=== PATIENT | female | born 1980 | race Asian ===

== ENCOUNTER 2017-06-20 11:39 | Day surgery (SDC) | payer MEDICAID, OTHER ==
[2017-06-19 15:16] VITALS: BMI 31.8
[~2017-06-20] VITALS: Ht 162.6 cm; Wt 81.8 kg
[2017-06-20] VITALS (13 sets, daily range): BP systolic 129–156; BP diastolic 79–108; PULSE 74–88; RESP 10–22; Ht 162.6 cm; Wt 81.8 kg
[~2017-06-20 11:39] MED LIST: AMLO-147 PO; FOLI-49 PO; LABE100T3 PO; MEDR10TA2 PO; NORE1TAB48 PO
[2017-06-20] MEDS ORDERED: CEFAZOLIN 2 GM/50 ML (PMX) 50 ML IVPB ONE (13:00)
[2017-06-20] MEDS ORDERED: metroNIDAZOLE 500 MG/NS (PMX) 100 ML IVPB ONE (13:00)
[2017-06-20] MEDS ORDERED: LACTATED RINGER'S 1,000 ML IV* ONE (13:00)
--- NOTE | 2017-06-20 13:01 | HPN ---
Date/Time of Note Date/Time of Note DATE: 06/20/17 TIME: 13:00 Interval H&P Admission Note Pt. seen H&P reviewed: No system changes BAY MON MD Jun 20, 2017 13:01
[2017-06-20] MEDS ORDERED: MIDAZOLAM 1 MG/ML 2 ML INJ ONE (13:12)
[2017-06-20] MEDS ORDERED: PROPOFOL 20 ML ONE (13:12)
[2017-06-20] MEDS ORDERED: LIDOCAINE 2% (SDV) 5 ML INJ ONE (13:12)
[2017-06-20] MEDS ORDERED: ROCURONIUM 50 MG INJ ONE (13:12)
[2017-06-20] MEDS ORDERED: FENTAnyl 50 MCG/ML VIAL ONE (13:12)
[2017-06-20] MEDS ORDERED: DEXAMETHASONE 4 MG/ML 1 ML INJ ONE (13:13)
[2017-06-20] MEDS ORDERED: ONDANSETRON 4 MG INJ ONE ×2 (13:13→14:16)
[2017-06-20] MEDS ORDERED: FAMOTIDINE 20 MG INJ ONE (13:13)
[2017-06-20] MEDS ORDERED: LABETALOL HCL 20MG INJ ONE (13:52)
[2017-06-20] MEDS ORDERED: SUGAMMADEX SODIUM 200 MG/2 ML VIAL IV ONE (13:57)
[2017-06-20] MEDS ORDERED: MEPERIDINE 25 MG INJ ONE (14:16)
--- NOTE | 2017-06-20 14:23 | SIPON ---
Date/Time of Note Date/Time of Note DATE: 06/20/17 TIME: 14:21 Operative Report Preoperative Diagnosis post menopausal bleed Postoperative Diagnosis pending Operation/Procedure Performed [facility] Surgeon see signature line retail store assistant as asch due to rule Anesthesia: general Estimated blood loss: 0 - 10 ml's Transfusion Required none Specimen mult Grafts/Implants none Complications none BAY MON MD Jun 20, 2017 14:23
[2017-06-20] MEDS ORDERED: hydrALAzine 20 MG INJ IV PRN (14:30)
[2017-06-20] MEDS ORDERED: OXYCODONE/ACETAMINOPHEN (5/325) TAB PO PRN ×2 (14:30)
[2017-06-20] MEDS ORDERED: EPHEDrine SULFATE 50 MG/5 ML SYG IV PRN (14:30)
[2017-06-20] MEDS ORDERED: METOCLOPRAMIDE 10 MG INJ IV PRN (14:30)
[2017-06-20] MEDS ORDERED: KETOROLAC 30 MG INJ IV PRN (14:30)
[2017-06-20] MEDS ORDERED: ONDANSETRON 4 MG INJ IV PRN (14:30)
[2017-06-20] MEDS ORDERED: DIPHENHYDRAMINE 50 MG INJ IV PRN (14:30)
[2017-06-20] MEDS ORDERED: LABETALOL HCL 20MG INJ IV PRN (14:30)
[2017-06-20] MEDS ORDERED: morphine (1 MG/ML) 10ML SYRINGE IV PRN ×3 (14:30)
[2017-06-20] MEDS ORDERED: MEPERIDINE 25 MG INJ IV PRN (14:30)
--- NOTE | 2017-06-23 17:47 | OPR ---
Date/Time of Note Date/Time of Note DATE: 06/23/17 TIME: 17:44 Operative Report Procedure Date: Jun 20, 2017 Preoperative Diagnosis OPERATIVE REPORT [facility] Name: Trudy Awan Medical Date: 06/20/17 Preoperative Diagnosis: Perimostmnopausal bleeding and pain Postoperative Diagnosis: same pathology pending Procedures: EUA and D and C Surgeon: Dr. Mon Casino Enforcement Agent: Dr. Shirley Anaesthesia: General Indication: The patient is a 37- year old patient with heavy bleeding who required a diagnosis. Findings and Procedure: After being prepped and draped an EUA was performed with the following findings : cx expanded and uterine enlgd. The cervix was biopsied and clasped with a tennaculum and dilated appropriately. At this time the cavity was curetted without incident. A frozen section was not performed and cancer was not confirmed. Tissue was sent for permanent section. The patient tolerated the procedure well. Bay Mon M.D. Postoperative Diagnosis as above Operation/Procedure Performed as above Surgeon see signature line Casino Enforcement Agent as above Anesthesia Type: general Estimated Blood Loss: none Transfusion none Specimen nultiple Grafts/Implants none Tubes/Drains none Complications none Indications as above Procedure Description as above BAY MON MD Jun 23, 2017 17:47
== END 2017-06-20 16:00 | disposition home or self-care (01) ==
LOC: SDS 11:39
DX: N95.0 Postmenopausal bleeding (principal)
CPT/HCPCS: 58120; 86850; 86900; 86901; 86920; 88305; J1100; J2175; J2250; J2270; J2405; J3010